=== PATIENT | male | born 1985 | race African-American/Black ===

== ENCOUNTER 2017-02-15 05:52 | Day surgery (SDC) | payer OTHER ==
[~2017-02-15 05:52] MED LIST: Buffered Lidocaine 1% SYRIN* 5 ML/SYR SYRINGE ONE; EPINEPHrine AMP 1 MG/ML ONE; Famotidine IV* 10 MG/ML 2 ML (20 mg) ONE; Morphine INJ* 2 MG/ML 1 ML SYRINGE IV PRN; PROCHLORPERAZINE INJ 5 MG/ML 2 ML VIAL IV PRN; ceFAZolin 2 GM PREMIX(*) 2 GM/50 ML BAG IVPB ONE; fentaNYL* 50 MCG/ML 2 ML VIAL (100 MCG VIAL) IV PRN; oxyCODONE/Acetamin 5/325 MG* TAB PO PRN
[2017-02-15] MEDS ORDERED: Famotidine IV* 10 MG/ML 2 ML (20 mg) IV ONE (06:00)
[2017-02-15] MEDS ORDERED: Midazolam* 1 MG/ML 5 ML VIAL (5 MG) ONE ×2 (06:57→07:08)
[2017-02-15] MEDS ORDERED: KETAMINE HCL* 50 MG/ML 10 ML VIAL ONE (06:57)
[2017-02-15] MEDS ORDERED: fentaNYL* 50 MCG/ML 2 ML VIAL (100 MCG VIAL) ONE (06:57)
[2017-02-15] MEDS ORDERED: Ondansetron INJ* 2 MG/ML VIAL ONE (08:22)
[2017-02-15] MEDS ORDERED: Glycopyrrolate IV* 0.2 MG/ML 1 ML VIAL ONE (08:22)
[2017-02-15] MEDS ORDERED: EPHEDrine (Pressors)* 50 MG/ML VIAL ONE (08:22)
[2017-02-15] MEDS ORDERED: Lidocaine 2% PF * 5 ML VIAL ONE (08:22)
[2017-02-15] MEDS ORDERED: Phenylephrine INJ* 10 MG/ML 1 ML VIAL (10 MG) ONE (08:22)
[2017-02-15] MEDS ORDERED: Propofol* 10 MG/ML 20 ML BTL IV PUSH ONE (08:22)
[2017-02-15] MEDS ORDERED: Dexamethasone IV* 4 MG/ML 1 ML (4 MG) ONE (08:22)
[2017-02-15] MEDS ORDERED: Bupivacaine 0.25% SDV* 30 ML ONE (10:03)
[2017-02-15 11:50] VITALS: BP 129/47
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
== END 2017-02-15 12:36 ==
LOC: OR 05:52 → EEVIPCON 07:30 → OR 12:36
PROVIDERS: ATTEND Orthopaedic Surgery
DX: M25.312 Other instability, left shoulder (principal); F17.210 Nicotine dependence, cigarettes, uncomplicated
CPT/HCPCS: J0171; J0690; J1100; J2250; J2405; J2704; J3010